=== PATIENT | female | born 1975 | race African-American/Black ===

== ENCOUNTER 2017-01-20 20:23 | Emergency (ER) | payer BC ==
[2017-01-20] MEDS ORDERED: Bupivacaine 0.5% 10 ML VIAL ONE ×2 (20:40→20:41)
[2017-01-20] MEDS ORDERED: Amoxicillin/Potassium Clav 875 MG TAB ONE (21:41)
[2017-01-20] MEDS ORDERED: Amoxicillin 125 mg/5 ml Oral Suspension ONE (21:45)
== END 2017-01-20 21:53 | disposition home or self-care (01) ==
LOC: BURERS 20:23
DX: K02.9 Dental caries, unspecified (principal); I10 Essential (primary) hypertension
CPT/HCPCS: 64400; J3490